=== PATIENT | male | born 1960 | race Two or more races ===

== ENCOUNTER 2018-08-14 05:25 | Day surgery (SDC) | payer OTHER ==
[~2018-08-14 05:25] MED LIST: AVALIDE 300-121 EACH PO; LIPITO PO; LOVAZA1 GM PO; SYNTHROID50 MCG PO
== END 2018-08-14 09:05 | disposition home or self-care (01) ==
LOC: AMB-ENDOS 05:25
DX: K57.32 Diverticulitis of large intestine without perforation or abscess without bleeding (principal); K64.1 Second degree hemorrhoids

== ENCOUNTER 2020-03-03 05:55 | Day surgery (SDC) | payer OTHER | END 2020-03-03 09:50 | disposition home or self-care (01) | LOC: AMB-ENDOS 05:55 → ADM 13:15 | PROVIDERS: ATTEND Colon & Rectal Surgery | DX: K63.5 Polyp of colon (principal); K64.1 Second degree hemorrhoids ==